=== PATIENT | male | born 1960 | race Caucasian/White ===

== ENCOUNTER 2016-06-21 12:09 | Emergency (ER) | payer MEDICARE ==
[~2016-06-21] VITALS: Ht 182.8 cm; Wt 90.7 kg
[2016-06-21] MEDS ORDERED: CARVEDILOL6.25 MG PO (12:42)
[2016-06-21] MEDS ORDERED: CEPHALEXIN500 M1 PO (14:24)
== END 2016-06-21 14:35 | disposition home or self-care (01) ==
LOC: ED 12:09
DX: S61.211A Laceration without foreign body of left index finger without damage to nail, initial encounter (principal); W23.0XXA Caught, crushed, jammed, or pinched between moving objects, initial encounter; Y93.89 Activity, other specified; Y92.89 Other specified places as the place of occurrence of the external cause; Y99.9 Unspecified external cause status

== ENCOUNTER → 2016-06-27 | Outpatient (CLI) | payer MEDICARE ==
[~2016-06-27] MED LIST: CARVEDILOL6.25 MG PO; CEPHALEXIN500 M1 PO
--- NOTE | ~2016-06-27 | PR ---
[place], [place] PROGRESS NOTE NAME: GEORGE JOYA [facility] #: [id number] UNIT #: [id number] ROOM: DOCTOR: AMY BlueSURESH BIRTHDATE: [birth year] DOS: 06/27/2016 This is a new wound care evaluation. CHIEF COMPLAINT: Laceration of the index finger of the left hand. HISTORY OF PRESENT ILLNESS: The patient is a 55-year-old gentleman who was seen in the Emergency Room Department on 06/21/2016 for a laceration of his left index finger. He had been cutting wood and accidentally, cut his finger on the edge of the piece of wood. The patient suffers from retinitis pigmentosa and is legally blind. In any case, he was seen in the ER and the wound was cleansed. He was given tetanus shot and empiric antibiotics to go home with 500 of cephalexin 3 times a day and had 4 sutures placed. An x-ray did show the fracture of a distal phalanx of the left index finger was noted on the x-ray. He was told to follow up with ortho, however, he did not. He does not feel that it is necessary. The patient comes to the wound clinic for further wound care. They had put a dressing on that day, bacitracin; however, he did not change the dressing until today. PAST MEDICAL HISTORY: Significant for a history of enlarged heart. He said he has had a history of congestive heart failure. He denies any lung problems, any history of diabetes, no problems with wound healing that he is aware of. No history of abscesses or MRSA. He has been blind for several years now. He does wear glasses, but has very limited eyesight. He has a family history of cancer in his maternal grandparents and uncles, diabetes in his father, heart disease in his father and siblings. SOCIAL HISTORY: He has never smoked. He is . Does not drink alcohol. 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 ALLERGIES: No known drug allergies. CURRENT MEDICATIONS: Are as follows: Carvedilol 6.25 p.o. b.i.d. and he is currently on cephalexin 500 t.i.d. REVIEW OF SYSTEMS: He has very minimal pain. There was some soupy drainage noted when they changed the dressing, but once again that dressing had not been changed since the sutures were placed. He has no fevers or chills. He has chronic dyspnea on exertion, which apparently is chronic and stable. No nausea, vomiting, diarrhea or abdominal pains. PHYSICAL EXAMINATION: VITAL SIGNS: Stable. Temperature is 97.7, pulse of 62, respirations 18, blood pressure is 124/70. GENERAL: This is an alert male, pleasant, cooperative, in no acute distress. There is no JVD. LUNGS: Clear. CARDIOVASCULAR: S1, S2. Regular rate and rhythm. ABDOMEN: Soft. EXTREMITIES: There is no edema. His left digit finger has 4 sutures that I [place], [place] PROGRESS NOTE NAME: GEORGE JOYA UNIT #: [id number] ROOM: DOCTOR: SURESH REYES M.D. BIRTHDATE: [birth year] could see. There is an area on the dorsal tip of the finger where some of the sutures are, that is somewhat grayish in appearance. This is just soft tissue. This area is approximately the size of a dime. It appears that it may not be 100% totally viable at this point. There is no surrounding cellulitis or purulence noted. There is some maceration noted on the side of the finger and the fingernail noted and there is some loosening of the nail bed that is apparent on the proximal portion of the finger. Sutures were left in place at this point. ASSESSMENT AND PLAN: Status post laceration of the index finger. He has had sutures placed. He has also an injury to the nail bed. At this point, it is not clear how much of the soft tissue is still viable. There is an area that is somewhat dusky and grayish in appearance at the very tip of the finger. Once the sutures were removed, we will be able to further evaluate this area a little bit more. However, I suspect that this is not 100% viable. In addition, the nail bed looks like this may also be at risk of falling off as well. He is going to complete his antibiotics and we are going to stop the bacitracin. It is very moist at this time, use Aquacel Ag ribbon to the areas and have him change it every day. If it looks like it is sticking to the wound then they can use normal saline to remove the dressing. I have him followed back up in next week for suture removal, then will be able to see a little bit more regarding how much of the tissue is going to be viable, but I suspect that he will have an open wound once the sutures are removed. Followup is next week. I did mention to look for possibilities of signs or symptoms of infection, fevers, chills, redness, pain or any change in purulent drainage. This was also discussed with the patient's daughter, who will be doing the dressing changes for him. SURESH REYES MD CM:PNTRANS [id number] SURESH REYES M.D. 06/28/16 1039 interface
== END ==
LOC: WOUNDCARE 11:23
DX: S61.311D Laceration without foreign body of left index finger with damage to nail, subsequent encounter (principal); I50.9 Heart failure, unspecified; X58.XXXD Exposure to other specified factors, subsequent encounter

== ENCOUNTER → 2016-07-03 | Outpatient (CLI) | payer MEDICARE ==
--- NOTE | ~2016-07-03 | PR ---
[place], [place] PROGRESS NOTE NAME: GEORGE JOYA [facility] #: [id number] UNIT #: [id number] ROOM: DOCTOR: AMY BlueSURESH BIRTHDATE: [birth year] DOS: 07/03/2016 CHIEF COMPLAINT: Followup of wound of the finger. HISTORY OF PRESENT ILLNESS: The patient suffered a laceration of the index finger of the left hand on 06/21. He had 4 sutures placed. He was given some antibiotics empirically. He also had a fracture of the distal phalanx of the left index finger, which was noted. He was seen for the first time last week. Last week when I saw him, I was concerned about some of the soft tissue around the injured area, which appeared quite dusky and macerated. It did not appear very healthy and I was concerned it may not be 100% viable. The patient was recommended to use Aquacel AG ribbon to the area and follow back up in the Wound Clinic this week; however, he said he stopped using it. At times, it was felt like it was sticking to the wound bed and it looks like he was just keeping it covered with a dry gauze bandage. Other than that, he says he does not really have any pain with the wound. He still has a lot numbness that even starts at the distal end of phalangeal joint. No fevers or chills are noted. No other complaints today are noted. OBJECTIVE: VITAL SIGNS: He is afebrile, pulse is 60, respirations 18, blood pressure is 104/70. EXTREMITIES: The wounded areas on this palmar aspect of the tip of the index finger on the left hand. It is measuring 0.7 x 1.7 x 0.1. There is a lot of dried blood around it. This area was cleaned with alcohol pad thoroughly and then 4 sutures were removed, one of the sutures actually was imbedded into the nail and had been removed quite easily. At this point, it looks like the wound is stable and there is a lot of scabbing and dryness around the area, but overall, I think the tissue looks improved from the last time I saw, the nail does not appear to be as movable as it was last week. It is not as macerated. The tissue removed itself looks healthy. ASSESSMENT AND PLAN: Status post laceration of the index finger of the left hand. Sutures were removed today. I think the tissue looks healthier in appearance that it did last week. I would just keep it covered. He can use topical antibiotics. He has triple antibiotics at home, that is fine and a nonadherent dressing. He can use soap and water to cleanse it as well. Eventually, I think the scalpel fall off and it will probably be healed underneath I suspect or he may have a small open wound, but overall, looks good now and will follow him up in 1 week. He is asking about the fracture of his finger. I would recommend to have him followup with Orthopedics, he declined that recommendation. [place], [place] PROGRESS NOTE [facility] [id number] UNIT #: [id number] ROOM: DOCTOR: SURESH REYES M.D. BIRTHDATE: [birth year] SURESH REYES MD CM:PNLATRICE [id number] SURESH REYES M.D. 07/04/16 0950 interface
== END ==
LOC: WOUNDCARE 01:12
DX: S61.211D Laceration without foreign body of left index finger without damage to nail, subsequent encounter (principal); X58.XXXD Exposure to other specified factors, subsequent encounter

== ENCOUNTER → 2016-07-14 | Outpatient (CLI) | payer MEDICARE ==
--- NOTE | ~2016-07-14 | PR ---
[place], [place] PROGRESS NOTE NAME: GEORGE JOYA [facility] #: [id number] UNIT #: [id number] ROOM: DOCTOR: AMY BlueSURESH BIRTHDATE: [birth year] DOS: 07/14/2016 CHIEF COMPLAINT: Followup of wound of the finger. HISTORY OF PRESENT ILLNESS: The patient suffered a laceration of the index finger. He had sutures placed in the Emergency Room Department, this occurred on 06/21/2016. He also had a fracture of the distal phalanx of the left index finger. We had suggested for him to follow up with Ortho in the past, but he declined our recommendation. He comes back today with the wound that appears healed. There was some injury to the nail bed. However, the nail continues to have not fallen off. There is no drainage. He does complain of occasional throbbing when he puts his hand down. He complains of throbs. He is not able to use his finger as much as he did before. He feels it is still numb and also swollen. PHYSICAL EXAMINATION: VITAL SIGNS: Today, he is afebrile, pulse is 60, respirations 18, blood pressure is 98/64. WOUND EXAMINATION: The wound looks good. It looks healed. There is some dried nonviable tissue around the original part of the wound. This area was debrided with forceps and scissors. It was easily removed. There was no bleeding. The wound continues to look healed underneath it. The nail bed seems to be intact, it is not movable. When I pressed on his finger, he did not complain of pain. It is not acutely red, it is still somewhat edematous in comparison to the other finger. He has some limited range of motion with bending his index finger completely. ASSESSMENT AND PLAN: Healed traumatic injury of the finger. We will discharge the patient. I did recommend that he follow up with Orthopedics as he is still complaining of some swelling of the finger. He did have a fracture there and there is some what appears to be nerve damage as well from the injury, but the wound itself looks good and is healed. Once again, the nail appears to be viable at this point; however, it may fall off in the future, but at this point it looks stable. Discharged from Wound Clinic and recommend follow up with Orthopedics. The patient seems reluctant to go and see Ortho. He is concerned about medical bills. [place], [place] PROGRESS NOTE NAME: [facility] JOYA [facility] [id number] UNIT #: [id number] ROOM: DOCTOR: SURESH REYES M.D. BIRTHDATE: [birth year] SURESH REYES MD CM:[id number] SURESH REYES M.D. 07/15/16121 interface
== END ==
LOC: WOUNDCARE 07:34
DX: S61.311D Laceration without foreign body of left index finger with damage to nail, subsequent encounter (principal); I48.91 Unspecified atrial fibrillation; X58.XXXD Exposure to other specified factors, subsequent encounter

== ENCOUNTER → 2017-09-28 | Outpatient (CLI) | payer MEDICARE ==
[2017-09-28 09:11] LABS: BASO % 0.4 % (0.0-1.0); EOS # 0.1 10*3/uL (0.0-0.4); EOS % 2.4 % (1.0-4.0); HEMATOCRIT 47.8 % (42.0-52.0); HEMOGLOBIN 15.8 g/dl (14.0-18.0); LYMPH # 1.3 10*3/uL (1.3-4.4); LYMPH % 26.1 % (27.0-41.0); MEAN CELL VOLUME 91.2 fl (80.0-94.0); MEAN CORPUSCULAR HGB 30.2 pg (27.0-31.0); MEAN CORPUSCULAR HGB CONC 33.1 g/dl (33.0-37.0); MEAN PLATELET VOLUME 9.2 fl (9.6-12.3); MONO # 0.5 10*3/uL (0.1-1.0); MONO % 9.1 % (3.0-9.0); NEUT # 3.1 10*3/uL (2.3-7.9); NEUT % 61.6 % (47.0-73.0); PLATELET COUNT AUTOMATED 234 10*3/uL (130-400); RED BLOOD COUNT 5.24 10*6/uL (4.50-5.90); RED CELL DISTRI WIDTH 12.7 % (0-14.5)
[2017-09-28 09:27] LABS: BILIRUBIN NEGATIVE (NEGATIVE); BLOOD TRACE-LYSED (NEGATIVE); CLARITY CLEAR (CLEAR); COLOR YELLOW (YELLOW); GLUCOSE NEGATIVE (NEGATIVE); KETONE NEGATIVE (NEGATIVE); LEUKO ESTERASE NEGATIVE (NEGATIVE); NITRITE NEGATIVE (NEGATIVE); PH 5.5 (5.0-9.0); SPECIFIC GRAVITY 1.025 (1.005-1.030); UROBILINOGEN 0.2 E.U./dl (0.2-1.0)
[2017-09-28 09:32] LABS: ALBUMIN 3.7 gm/dl (3.1-4.5); ALKALINE PHOSPHATASE 79 U/L (45-117); BUN 17 mg/dl (7-24); CHLORIDE 107 mmol/L (98-107); CHOLESTEROL 150 mg/dL (<200); CREATININE 0.96 mg/dL (0.70-1.30); HDL CHOLESTEROL 49 mg/dl (40-60); LDL CHOLESTEROL 83 mg/dL (9-159); POTASSIUM 3.9 mmol/L (3.5-5.1); SGOT/AST 16 IU/L (3-35); SGPT/ALT 23 U/L (12-78); SODIUM 141 mmol/L (136-145); TOTAL PROTEIN 7.6 gm/dL (6.4-8.2); TRIGLYCERIDES 88 mg/dl (<150); VLDL CHOLESTEROL 18 mg/dL (6-40)
[2017-09-28 09:58] LABS: MUCOUS 2+
== END | disposition home or self-care (01) ==
LOC: LAB 08:15
PROVIDERS: Internal Medicine
DX: Z12.11 Encounter for screening for malignant neoplasm of colon (principal); Z12.5 Encounter for screening for malignant neoplasm of prostate; I10 Essential (primary) hypertension; E78.5 Hyperlipidemia, unspecified; M54.9 Dorsalgia, unspecified; Q64.9 Congenital malformation of urinary system, unspecified

== ENCOUNTER → 2018-10-24 | Outpatient (CLI) | payer MEDICARE ==
[2018-10-24 09:48] LABS: BASO % 0.5 % (0.0-1.0); EOS # 0.1 10*3/uL (0.0-0.4); EOS % 2.1 % (1.0-4.0); HEMATOCRIT 47.1 % (42.0-52.0); HEMOGLOBIN 15.3 g/dl (14.0-18.0); LYMPH # 1.2 10*3/uL (1.3-4.4); LYMPH % 27.7 % (27.0-41.0); MEAN CELL VOLUME 92.5 fl (80.0-94.0); MEAN CORPUSCULAR HGB 30.1 pg (27.0-31.0); MEAN CORPUSCULAR HGB CONC 32.5 g/dl (33.0-37.0); MEAN PLATELET VOLUME 9.3 fl (9.6-12.3); MONO # 0.5 10*3/uL (0.1-1.0); MONO % 11.7 % (3.0-9.0); NEUT # 2.5 10*3/uL (2.3-7.9); NEUT % 57.8 % (47.0-73.0); PLATELET COUNT AUTOMATED 227 10*3/uL (130-400); RED BLOOD COUNT 5.09 10*6/uL (4.50-5.90); RED CELL DISTRI WIDTH 13.2 % (0-14.5); WHITE BLOOD COUNT 4.4 10*3/uL (4.8-10.8)
[2018-10-24 10:01] LABS: ALBUMIN 3.7 gm/dl (3.1-4.5); ALKALINE PHOSPHATASE 70 U/L (45-117); BUN 19 mg/dl (7-24); CHLORIDE 111 mmol/L (98-107); CHOLESTEROL 148 mg/dL (<200); CREATININE 0.89 mg/dL (0.70-1.30); HDL CHOLESTEROL 51 mg/dl (40-60); LDL CHOLESTEROL 82 mg/dL (9-159); POTASSIUM 3.8 mmol/L (3.5-5.1); SGOT/AST 19 IU/L (3-35); SGPT/ALT 23 U/L (12-78); SODIUM 144 mmol/L (136-145); TOTAL PROTEIN 7.3 gm/dL (6.4-8.2); TRIGLYCERIDES 75 mg/dl (<150); VLDL CHOLESTEROL 15 mg/dL (6-40)
== END | disposition home or self-care (01) ==
LOC: LAB 08:35
PROVIDERS: Internal Medicine
DX: Z12.5 Encounter for screening for malignant neoplasm of prostate (principal); E78.5 Hyperlipidemia, unspecified; R53.83 Other fatigue

== ENCOUNTER → 2019-01-28 | Outpatient (CLI) | payer MEDICARE ==
[2019-01-28 09:32] LABS: BILIRUBIN NEGATIVE (NEGATIVE); BLOOD TRACE-INTACT (NEGATIVE); CLARITY CLEAR (CLEAR); COLOR YELLOW (YELLOW); GLUCOSE NEGATIVE (NEGATIVE); KETONE NEGATIVE (NEGATIVE); LEUKO ESTERASE NEGATIVE (NEGATIVE); NITRITE NEGATIVE (NEGATIVE); SPECIFIC GRAVITY 1.015 (1.005-1.030); UROBILINOGEN 0.2 E.U./dl (0.2-1.0)
[2019-01-28 09:43] LABS: MUCOUS 1+
== END | disposition home or self-care (01) ==
LOC: LAB 08:49
PROVIDERS: Urology
DX: N20.0 Calculus of kidney (principal); R31.29 Other microscopic hematuria

== ENCOUNTER → 2020-09-09 | Outpatient (CLI) | payer MEDICARE ==
[2020-09-09 07:51] LABS: BASO % 0.7 % (0.0-1.0); EOS # 0.2 10*3/uL (0.0-0.4); EOS % 2.8 % (1.0-4.0); HEMATOCRIT 46.3 % (42.0-52.0); LYMPH # 1.6 10*3/uL (1.3-4.4); LYMPH % 28.4 % (27.0-41.0); MEAN CELL VOLUME 89.7 fl (80.0-94.0); MEAN CORPUSCULAR HGB CONC 33.5 g/dl (33.0-37.0); MEAN PLATELET VOLUME 9.3 fl (9.6-12.3); MONO # 0.5 10*3/uL (0.1-1.0); MONO % 8.6 % (3.0-9.0); NEUT # 3.4 10*3/uL (2.3-7.9); NEUT % 59.3 % (47.0-73.0); PLATELET COUNT AUTOMATED 255 10*3/uL (130-400); RED BLOOD COUNT 5.16 10*6/uL (4.50-5.90); RED CELL DISTRI WIDTH 13.1 % (0-14.5); WHITE BLOOD COUNT 5.7 10*3/uL (4.8-10.8)
[2020-09-09 08:06] LABS: ALBUMIN 3.6 gm/dl (3.1-4.5); ALKALINE PHOSPHATASE 80 U/L (45-117); BUN 14 mg/dl (7-24); CHLORIDE 111 mmol/L (98-107); CHOLESTEROL 171 mg/dL (<200); CREATININE 0.96 mg/dL (0.70-1.30); LDL CHOLESTEROL 97 mg/dL (9-159); POTASSIUM 3.8 mmol/L (3.5-5.1); SGOT/AST 17 IU/L (3-35); SGPT/ALT 27 U/L (12-78); SODIUM 141 mmol/L (136-145); TOTAL PROTEIN 7.4 gm/dL (6.4-8.2); TRIGLYCERIDES 119 mg/dl (<150)
[2020-09-09 08:49] LABS: VITAMIN D, 25-HYDROXY 36.6 ng/mL (30-100)
== END | disposition home or self-care (01) ==
LOC: LAB 07:15
PROVIDERS: ATTEND Internal Medicine
DX: Z12.5 Encounter for screening for malignant neoplasm of prostate (principal); E78.5 Hyperlipidemia, unspecified; I10 Essential (primary) hypertension; E55.9 Vitamin D deficiency, unspecified; R53.83 Other fatigue

== ENCOUNTER 2022-06-28 09:12 | Emergency (ER) | payer MEDICARE ==
[~2022-06-28] VITALS: Wt 97.5 kg
[2022-06-28] MEDS ORDERED: ASPIRIN CHEWABL81 MG PO (09:29)
[2022-06-28 10:42] LABS: BASO % 0.4 % (0.0-1.0); EOS # 0.2 10*3/uL (0.0-0.4); EOS % 2.1 % (1.0-4.0); HEMATOCRIT 44.6 % (42.0-52.0); LYMPH # 1.2 10*3/uL (1.3-4.4); LYMPH % 14.9 % (27.0-41.0); MEAN CORPUSCULAR HGB 30.1 pg (27.0-31.0); MEAN CORPUSCULAR HGB CONC 32.7 g/dl (33.0-37.0); MEAN PLATELET VOLUME 9.2 fl (9.6-12.3); MONO % 12.9 % (3.0-9.0); NEUT # 5.5 10*3/uL (2.3-7.9); NEUT % 69.6 % (47.0-73.0); PLATELET COUNT AUTOMATED 219 10*3/uL (130-400); RED BLOOD COUNT 4.85 10*6/uL (4.50-5.90); RED CELL DISTRI WIDTH 13.2 % (0-14.5)
[2022-06-28 10:43] LABS: BILIRUBIN Negative (Negative); BLOOD Negative (Negative); CLARITY Clear (Clear); COLOR Yellow (Yellow); GLUCOSE Negative (Negative); KETONE Trace (Negative); LEUKO ESTERASE Negative (Negative); NITRITE Negative (Negative); PH 5.5 (4.5-8.0); UROBILINOGEN 0.2 E.U./dl (0.0-1.0)
[2022-06-28 11:02] LABS: WBC 0-2 wbc/hpf (0-5)
[2022-06-28] MEDS ORDERED: ONDANSETRON4 MG SL (11:38)
[2022-06-28] MEDS ORDERED: FLOMAX0.4 MG PO (11:38)
== END 2022-06-28 11:57 | disposition home or self-care (01) ==
LOC: ED 09:12
PROVIDERS: Emergency Medicine
DX: N20.1 Calculus of ureter (principal); I10 Essential (primary) hypertension

== ENCOUNTER → 2023-02-22 | Outpatient (CLI) | payer MEDICARE ==
[~2023-02-22] MED LIST changes: +ASPIRIN CHEWABL81 MG PO; +FLOMAX0.4 MG PO; +ONDANSETRON4 MG SL
== END | disposition home or self-care (01) ==
LOC: CT 08:48
PROVIDERS: ATTEND Internal Medicine Pulmonary Disease
DX: R91.8 Other nonspecific abnormal finding of lung field (principal); N28.1 Cyst of kidney, acquired

== ENCOUNTER → 2023-07-18 | Outpatient (CLI) | payer MEDICARE ==
[2023-07-18 09:39] LABS: BASO % 0.7 % (0.0-1.0); EOS # 0.1 10*3/uL (0.0-0.4); EOS % 1.9 % (1.0-4.0); HEMATOCRIT 48.5 % (42.0-52.0); LYMPH # 1.3 10*3/uL (1.3-4.4); LYMPH % 23.7 % (27.0-41.0); MEAN CELL VOLUME 92.2 fl (80.0-94.0); MEAN CORPUSCULAR HGB 30.4 pg (27.0-31.0); MEAN PLATELET VOLUME 8.7 fl (9.6-12.3); MONO # 0.5 10*3/uL (0.1-1.0); MONO % 9.5 % (3.0-9.0); NEUT # 3.4 10*3/uL (2.3-7.9); NEUT % 64.2 % (47.0-73.0); PLATELET COUNT AUTOMATED 221 10*3/uL (130-400); RED BLOOD COUNT 5.26 10*6/uL (4.50-5.90); RED CELL DISTRI WIDTH 13.1 % (0-14.5); WHITE BLOOD COUNT 5.4 10*3/uL (4.8-10.8)
[2023-07-18 10:18] LABS: ALKALINE PHOSPHATASE 70 U/L (46-116); BUN 11 mg/dl (9-23); CHLORIDE 107 mmol/L (98-107); CHOLESTEROL 172 mg/dL (<200); LDL CHOLESTEROL 104 mg/dL (9-159); SGPT/ALT 19 U/L (5-49); TOTAL PROTEIN 6.8 gm/dL (6.0-8.0); TRIGLYCERIDES 113 mg/dl (<150)
== END ==
LOC: LAB 09:22
PROVIDERS: Internal Medicine; ATTEND Urology
DX: Z12.11 Encounter for screening for malignant neoplasm of colon (principal); Z00.00 Encounter for general adult medical examination without abnormal findings; Z12.5 Encounter for screening for malignant neoplasm of prostate; N40.1 Benign prostatic hyperplasia with lower urinary tract symptoms

== ENCOUNTER → 2023-12-14 | Outpatient (CLI) | payer MEDICARE ==
[2023-12-14 08:55] LABS: BASO % 0.8 % (0.0-1.0); EOS # 0.2 10*3/uL (0.0-0.4); EOS % 3.8 % (1.0-4.0); HEMATOCRIT 46.5 % (42.0-52.0); LYMPH # 1.1 10*3/uL (1.3-4.4); LYMPH % 22.6 % (27.0-41.0); MEAN CELL VOLUME 91.7 fl (80.0-94.0); MEAN CORPUSCULAR HGB CONC 32.7 g/dl (33.0-37.0); MONO # 0.6 10*3/uL (0.1-1.0); MONO % 12.4 % (3.0-9.0); NEUT % 60.2 % (47.0-73.0); PLATELET COUNT AUTOMATED 241 10*3/uL (130-400); RED BLOOD COUNT 5.07 10*6/uL (4.50-5.90); RED CELL DISTRI WIDTH 13.6 % (0-14.5)
[2023-12-14 09:48] LABS: ALKALINE PHOSPHATASE 77 U/L (46-116); BUN 15 mg/dl (9-23); CHLORIDE 108 mmol/L (98-107); CHOLESTEROL 163 mg/dL (<200); LDL CHOLESTEROL 97 mg/dL (9-159); SGPT/ALT 31 U/L (5-49); TOTAL PROTEIN 6.9 gm/dL (6.0-8.0); TRIGLYCERIDES 68 mg/dl (<150)
== END | disposition home or self-care (01) ==
LOC: RAD 11-05 07:30 → LAB 11-05 07:30
PROVIDERS: ATTEND Internal Medicine
DX: Z13.820 Encounter for screening for osteoporosis (principal); Z12.5 Encounter for screening for malignant neoplasm of prostate; M81.0 Age-related osteoporosis without current pathological fracture; Z00.00 Encounter for general adult medical examination without abnormal findings; R53.83 Other fatigue; E78.5 Hyperlipidemia, unspecified

== ENCOUNTER → 2024-01-15 | Outpatient (CLI) | payer MEDICARE ==
[2024-01-15 08:08] LABS: BASO % 0.8 % (0.0-1.0); EOS # 0.2 10*3/uL (0.0-0.4); EOS % 2.9 % (1.0-4.0); HEMATOCRIT 46.2 % (42.0-52.0); MEAN CELL VOLUME 90.4 fl (80.0-94.0); MEAN CORPUSCULAR HGB 30.5 pg (27.0-31.0); MEAN CORPUSCULAR HGB CONC 33.8 g/dl (33.0-37.0); MEAN PLATELET VOLUME 8.8 fl (9.6-12.3); MONO # 0.5 10*3/uL (0.1-1.0); MONO % 9.8 % (3.0-9.0); NEUT % 58.5 % (47.0-73.0); PLATELET COUNT AUTOMATED 221 10*3/uL (130-400); RED BLOOD COUNT 5.11 10*6/uL (4.50-5.90); RED CELL DISTRI WIDTH 13.3 % (0-14.5); WHITE BLOOD COUNT 5.1 10*3/uL (4.8-10.8)
[2024-01-15 08:44] LABS: TOTAL PROTEIN 7.1 gm/dL (6.0-8.0)
== END | disposition home or self-care (01) ==
LOC: LAB 01-09 00:40
PROVIDERS: ATTEND Internal Medicine
DX: R74.8 Abnormal levels of other serum enzymes (principal); R79.89 Other specified abnormal findings of blood chemistry

== ENCOUNTER → 2024-03-11 | Outpatient (CLI) | payer MEDICARE, OTHER ==
[2024-03-11 09:24] LABS: VITAMIN D, 25-HYDROXY 73.5 ng/mL (30-100)
[2024-03-11 09:25] LABS: ALKALINE PHOSPHATASE 81 U/L (46-116); BUN 13 mg/dl (9-23); CHLORIDE 108 mmol/L (98-107); CHOLESTEROL 168 mg/dL (<200); FREE T4 1.23 ng/dl (0.89-1.76); LDL CHOLESTEROL 98 mg/dL (9-159); POTASSIUM 4.3 mmol/L (3.4-5.1); SGPT/ALT 19 U/L (5-49); TOTAL PROTEIN 7.4 gm/dL (6.0-8.0); TRIGLYCERIDES 105 mg/dl (<150); URIC ACID 4.5 mg/dL (3.7-9.2)
== END | disposition home or self-care (01) ==
LOC: LAB 08:23
PROVIDERS: ATTEND Internal Medicine
DX: E55.9 Vitamin D deficiency, unspecified (principal); R53.83 Other fatigue; M81.0 Age-related osteoporosis without current pathological fracture; E04.9 Nontoxic goiter, unspecified; N20.0 Calculus of kidney; E29.1 Testicular hypofunction; N40.0 Benign prostatic hyperplasia without lower urinary tract symptoms

== ENCOUNTER → 2024-03-24 | Outpatient (CLI) | payer MEDICARE, OTHER | END | disposition home or self-care (01) | LOC: LAB 09:26 | PROVIDERS: ATTEND Internal Medicine | DX: N20.0 Calculus of kidney (principal) ==

== ENCOUNTER → 2024-03-31 | Outpatient (CLI) | payer MEDICARE, OTHER | END | disposition home or self-care (01) | LOC: CARD 03-26 09:30 → LAB 01:58 → CARD 08:30 | PROVIDERS: ATTEND Internal Medicine Cardiovascular Disease | DX: I34.0 Nonrheumatic mitral (valve) insufficiency (principal); I42.0 Dilated cardiomyopathy; R42 Dizziness and giddiness; N20.0 Calculus of kidney; R00.1 Bradycardia, unspecified ==

== ENCOUNTER → 2024-08-26 | Outpatient (CLI) | payer MEDICARE, OTHER ==
[2024-08-26 09:52] LABS: FREE T4 1.14 ng/dl (0.89-1.76); LDL CHOLESTEROL 96.0 mg/dL (9-159); SGPT/ALT 38.0 U/L (5-49)
[2024-08-26 15:38] LABS: VITAMIN D, 25-HYDROXY 104.0 ng/mL (30-100)
== END | disposition home or self-care (01) ==
LOC: LAB 08:11
PROVIDERS: ATTEND Internal Medicine
DX: E78.5 Hyperlipidemia, unspecified (principal); E04.9 Nontoxic goiter, unspecified; E55.9 Vitamin D deficiency, unspecified; R53.83 Other fatigue

== ENCOUNTER → 2024-12-01 | Outpatient (CLI) | payer MEDICARE, OTHER ==
[2024-12-01 09:15] LABS: BUN 17 mg/dl (9-23); FREE T4 1.19 ng/dl (0.89-1.76); LDL CHOLESTEROL 92 mg/dL (9-159); SGPT/ALT 25 U/L (5-49)
[2024-12-01 09:20] LABS: VITAMIN D, 25-HYDROXY 48.1 ng/mL (30-100)
== END | disposition home or self-care (01) ==
LOC: LAB 07:49
PROVIDERS: ATTEND Internal Medicine
DX: N40.0 Benign prostatic hyperplasia without lower urinary tract symptoms (principal); E78.5 Hyperlipidemia, unspecified; E55.9 Vitamin D deficiency, unspecified; E04.9 Nontoxic goiter, unspecified; M81.0 Age-related osteoporosis without current pathological fracture; N20.0 Calculus of kidney

== ENCOUNTER → 2024-12-09 | Outpatient (CLI) | payer MEDICARE, OTHER ==
[2024-12-09 10:05] LABS: BILIRUBIN Negative (Negative); BLOOD Negative (Negative); CLARITY Clear (Clear); COLOR Yellow (Yellow); KETONE Negative (Negative); LEUKO ESTERASE Negative (Negative); NITRITE Negative (Negative); PH 6.5 (4.5-8.0); SPECIFIC GRAVITY 1.015 (1.001-1.030); UROBILINOGEN 1.0 E.U./dl (0.0-1.0)
[2024-12-09 10:44] LABS: BACTERIA TRACE; EPITHELIAL CELLS 0-2; WBC 0-2 wbc/hpf (0-5)
== END | disposition home or self-care (01) ==
LOC: LAB 07:54
PROVIDERS: ATTEND Internal Medicine
DX: N40.0 Benign prostatic hyperplasia without lower urinary tract symptoms (principal); N20.0 Calculus of kidney; M81.0 Age-related osteoporosis without current pathological fracture; E78.5 Hyperlipidemia, unspecified; E55.9 Vitamin D deficiency, unspecified; E04.9 Nontoxic goiter, unspecified; R53.83 Other fatigue

== ENCOUNTER → 2025-01-16 | Outpatient (CLI) | payer MEDICARE, OTHER | END | disposition home or self-care (01) | LOC: CT 00:16 | PROVIDERS: ATTEND Internal Medicine Pulmonary Disease | DX: R91.8 Other nonspecific abnormal finding of lung field (principal); J98.4 Other disorders of lung ==